=== PATIENT | male | born 1940 | race Caucasian/White ===

== ENCOUNTER → 2016-07-03 | Outpatient (CLI) | payer MEDICARE ==
[2016-07-03 12:13] LABS: CH 31.2; CHCM 33.3; HCT 45.1 % (39.0-53.0); HDW 2.68; HGB 14.9 gm/dL (13.0-17.5); MCH 31.1 pg (25.0-35.0); MCHC 33.1 g/dL (31.0-37.0); MCV 94.1 fL (80.0-100.0); Mean Platelet Volume 7.3; RBC 4.79 m/uL (4.30-5.90); RDW 13.2 % (11.5-15.5); WBC 5.9 k/uL (3.8-10.6)
--- NOTE | 2016-07-03 12:38 | XR ---
EXAMINATION TYPE: XR chest 2V DATE OF EXAM: 07/03/2016 11:43 AM COMPARISON: 03/01/2012 TECHNIQUE: PA and lateral views submitted. HISTORY: Cough FINDINGS: The lungs are clear and there is no pneumothorax, pleural effusion, or focal pneumonia. Hyperinflat ion suggests COPD. There is stable biapical pleural thickening. Coarsened interstitium suggest pulmon antwan fibrosis. Tiny granuloma suspected in the upper lobes. Aorta again is prominent in size. More focal right suprahilar area of asymmetry is noted. IMPRESSION: 1. There is a more focal area of density in the right suprahilar region for which CT of the chest is recommended. Infiltrate versus neoplasm.. 2. COPD and findings suggestive of pulmonary fibrosis. 3. The aorta again is prominent previously noted to represent mild aneurysmal dilation
== END | disposition home or self-care (01) ==
LOC: RADXRMAIN 11:33
PROVIDERS: ATTEND Internal Medicine
DX: J98.4 Other disorders of lung (principal); J44.9 Chronic obstructive pulmonary disease, unspecified; R05 Cough
CPT/HCPCS: 36415; 71020; 83880; 85027

== ENCOUNTER → 2016-07-08 | Outpatient (CLI) | payer MEDICARE ==
[2016-07-08 17:07] LABS: Blood Urea Nitrogen 23 mg/dL (9-20); Non-African American GFR(MDRD) 59 (>60 ml/min/1.73 sqM)
--- NOTE | 2016-07-08 18:04 | CT ---
EXAMINATION TYPE: CT angio chest DATE OF EXAM: 07/08/2016 5:44 PM COMPARISON: 01/30/2015 HISTORY: Cough x 2 weeks. Follow-up on thoracic aneurysm. CT DLP: 420.00 mGycm Automated exposure control for dose reduction was used. CONTRAST: CTA scan of the thorax is performed with IV Contrast, patient injected with 80 mL of Visipaque 320, p ulmonary embolism protocol. . FINDINGS: There is a patchy nodular consolidation at the lung apices and worse on the right side. There is a mi ld reticular infiltrate at the lung bases. There is no pleural effusion. Thoracic aorta is atheromato us. There is aneurysm of the ascending aorta. This measures up to 4.7 cm in diameter. There is no sig n of dissection. There are no hilar masses. There is no mediastinal adenopathy. There is no pleural e ffusion. 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 NO SIGN OF PULM ONARY EMBOLISM. 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 FIBROTIC CHANGES AND INTERSTITIAL INFILTRATE AT THE LUNG BASES APPEARS SLIGHTLY WORSE THAN LAST EXAM.
== END | disposition home or self-care (01) ==
LOC: RADCTMAIN 16:13
PROVIDERS: ATTEND Internal Medicine Interventional Cardiology
DX: I71.2 Thoracic aortic aneurysm, without rupture (principal); J84.10 Pulmonary fibrosis, unspecified; R91.8 Other nonspecific abnormal finding of lung field; R05 Cough; R93.8 Abnormal findings on diagnostic imaging of other specified body structures
CPT/HCPCS: 82565; 84520; 71275; 36415; Q9967

== ENCOUNTER → 2019-01-11 | Outpatient (CLI) | payer MEDICARE ==
--- NOTE | 2019-01-11 11:36 | ECHOS ---
STRESS ECHOCARDIOGRAM DATE OF SERVICE: 01/11/2019 INDICATIONS: Shortness of breath. MEDICATIONS: BASELINE HEART RATE: 58 BASELINE BLOOD PRESSURE: 129/55 MAXIMUM HEART RATE: 131 MAXIMUM BLOOD PRESSURE: 168/77 85% MPHR: 122 100% MPHR: 143 METS: 7 MAXIMUM STAGE REACHED: III TOTAL EXERCISE TIME: 6 minutes CLINICAL INFORMATION: Baseline EKG shows sinus rhythm with nonspecific ST-T wave changes. Patient exercised on Hardeep protocol for a total of 6 minutes achieving 7 METs, 91% of predicted maximal heart rate without chest pain. At peak exercise, there was worsening of the baseline ST- T wave changes noted. Baseline echo shows normal left ventricular size, wall motion and systolic function. Postexercise, there is involving inferoapical wall at peak exercise. CONCLUSIONS: 1. Average exercise tolerance. 2. Inconclusive EKG part of the stress test due to baseline EKG abnormalities. 3. Abnormal stress echo showing exercise-induced wall motion abnormality involving inferoapical wall. MMODL / IJN: [id number] /
== END | disposition home or self-care (01) ==
LOC: RADNMMAIN 09:35
PROVIDERS: ATTEND Internal Medicine
DX: R94.39 Abnormal result of other cardiovascular function study (principal); I25.10 Atherosclerotic heart disease of native coronary artery without angina pectoris; Z88.6 Allergy status to analgesic agent
CPT/HCPCS: 93351

== ENCOUNTER → 2021-08-15 | Outpatient (CLI) | payer MEDICARE ==
--- NOTE | 2021-08-17 20:33 | US ---
EXAMINATION TYPE: US carotid duplex BILAT DATE OF EXAM: 08/15/2021 COMPARISON: NONE CLINICAL HISTORY: I65.23 Carotid Stenosis. EXAM MEASUREMENTS: RIGHT: Peak Systolic Velocity (PSV) cm/sec ----- Right CCA: 105 ----- Right ICA: 115 ----- Right ECA: 130 ICA/CCA ratio: 1.10 RIGHT: End Diastole cm/sec ----- Right CCA: 17.0 ----- Right ICA: 21.1 ----- Right ECA: 0.0 LEFT: Peak Systolic Velocity (PSV) cm/sec ----- Left CCA: 98.4 ----- Left ICA: 96.0 ----- Left ECA: 85.2 ICA/CCA ratio: 0.98 LEFT: End Diastole cm/sec ----- Left CCA: 15.6 ----- Left ICA: 28.2 ----- Left ECA: 14.4 VERTEBRALS (direction of flow): Right Vertebral: Antegrade Left Vertebral: Antegrade Rhythm: Normal mild plaque bilateral bifurcations. no evidence of elevated velocities IMPRESSION: 1. Atheromatous plaquing without significant flow-limiting stenosis by velocity measurement Criteria for Assigning % of Stenosis / Diameter reduction (Estimation based on the indirect measurements of the internal carotid artery velocities (ICA PSV). 1. Normal (no stenosis)=ICA PSV < 125 cm/s: ratio < 2.0: ICA EDV<40 cm/s. 2. Less than 50% stenosis=ICA PSV < 125 cm/s: ratio < 2.0: ICA EDV<40 cm/s. 3. 50 to 69% stenosis=ICA PSV of 125 to 230 cm/s: ration 2.0 ? 4.0: ICA EDV 40-100 cm/s. 4. Greater than 70% stenosis to near occlusion= ICA PSV > 230 cm/s: ratio > 4.0: ICA EDV > 100 cm/s. 5. Near occlusion= ICA PSV velocities may be low or undetectable: variable ratio and ICA EDV. 6. Total occlusion=unable to detect flow.
== END | disposition home or self-care (01) ==
LOC: RADUSWWP 16:01
PROVIDERS: ATTEND Internal Medicine
DX: I65.23 Occlusion and stenosis of bilateral carotid arteries (principal)
CPT/HCPCS: 93880

== ENCOUNTER → 2022-03-03 | Outpatient (CLI) | payer MEDICARE ==
--- NOTE | 2022-03-04 11:18 | XR ---
Left shoulder HISTORY: Pain, remote history of trauma 3 views of the left shoulder correlated to chest CT dated 07/08/2016 Distal acromion is downturned. There may be a distal acromial spur. Left lung apex shows some patchy density, interstitial prominence, apical thickening at the pleural level. Alignment is maintained. Sh oulder may be somewhat high riding. Question calcification at the insertion of the rotator cuff tendo n. IMPRESSION: There may be underlying impingement, difficult to exclude rotator cuff tear, shoulder MRI may be of benefit. There is underlying interstitial lung disease.
== END | disposition home or self-care (01) ==
LOC: RADXRMAIN 15:47
PROVIDERS: ATTEND Internal Medicine
DX: M25.512 Pain in left shoulder (principal)

== ENCOUNTER → 2022-03-27 | Outpatient (CLI) | payer MEDICARE ==
--- NOTE | 2022-03-27 22:33 | MR ---
EXAMINATION TYPE: MR shoulder LT wo con DATE OF EXAM: 03/27/2022 COMPARISON: Outside left shoulder x-ray March 03, 2022 HISTORY: Left shoulder pain, S/P fall 6 wks ago. TECHNIQUE: Multiplanar, multisequence imaging of the left shoulder is performed without contrast. FINDINGS: Rotator Cuff: Full-thickness retracted tear of the supraspinatus tendon to level of the acromioclavic ular joint. Infraspinatus tendon intact. Rotator cuff muscle bulk preserved. Acromioclavicular Joint: Moderate to severe narrowing and moderate superior capsular hypertrophy. Glenohumeral Joint: Small to moderate size joint effusion extending superiorly. Moderate glenoid spur ring. High positioning of the humeral head. Labrum: Blunting of superior labrum consistent with tear. Biceps Tendon: The long head of biceps is dislocated medially, intra-articular portion not well seen. Bone marrow signal: There is a Hill-Sachs type deformity or loss of spherical shape to the humeral he ad particularly along the lateral aspect with subchondral cystic change superiorly. Other: No additional significant abnormality is appreciated. IMPRESSION: 1. Full-thickness retracted tear of the distal supraspinatus tendon. High positioned humeral head sug gesting underlying instability. 2. Labral tear with dislocated onto head of biceps tendon.
== END | disposition home or self-care (01) ==
LOC: RADMRIMAIN 18:42
PROVIDERS: ATTEND Internal Medicine
DX: M75.112 Incomplete rotator cuff tear or rupture of left shoulder, not specified as traumatic (principal)

== ENCOUNTER 2023-06-25 10:17 | Emergency (ER) | payer MEDICARE ==
[2023-06-25 10:42] VITALS: RESP 18; TEMP 96.9
[2023-06-25] MEDS ORDERED: IPRATROPIUM-ALBUTEROL 3 ML NEB INHALATION STA (10:44)
--- NOTE | 2023-06-25 10:45 | ED ---
General Adult HPI - General Chief complaint: Shortness of Breath Stated complaint: SOB Time Seen by Provider: 06/25/23 10:30 Source: patient Mode of arrival: ambulatory Limitations: no limitations - History of Present Illness Initial comments: Patient is a pleasant 82-year-old male presenting to the emergency department with concerns with shortness of breath. Onset of symptoms was a couple weeks ago. Patient has had congestion in his chest and sinuses however now only in the chest. Patient has occasional cough. Patient does have history of pulmo nary fibrosis. No chest pain. No fever. - Related Data Previous Rx's Medication Instructions Recorded Albuterol Inhaler [Ventolin Hfa 2 puff INHALATION Q4HR PRN #1 each 06/25/23 Inhaler] Oseltamivir [Tamiflu] 75 mg PO Q12HR #10 cap 06/25/23 Allergies Allergy/AdvReac Type Severity Reaction Status Date / Time aspirin AdvReac Abdominal Verified 06/25/23 10:29 Pain prednisone AdvReac Confusion Verified 06/25/23 10:29 Review of Systems ROS Statement: Those systems with pertinent positive or pertinent negative responses have been documented in the HPI. ROS Other: All systems not noted in ROS Statement are negative. Constitutional: Denies: fever, chills Eyes: Denies: eye pain ENT: Reports: congestion Respiratory: Reports: as per HPI, cough, dyspnea Cardiovascular: Denies: chest pain Endocrine: Reports: fatigue Gastrointestinal: Denies: abdominal pain Past Medical History Past Medical History: Hyperlipidemia, Hypertension Additional Past Medical History / Comment(s): Pulmonary fibrosis History of Any Multi-Drug Resistant Organisms: None Reported Past Surgical History: Back Surgery, Hernia Repair, Orthopedic Surgery Additional Past Surgical History / Comment(s): left elbow, back, carpal tunnel Past Psychological History: No Psychological Hx Reported Smoking Status: Never smoker Past Alcohol Use History: None Reported Past Drug Use History: None Reported General Exam Limitations: no limitations General appearance: alert, in no apparent distress Head exam: Present: normocephalic Eye exam: Present: normal appearance Neck exam: Present: normal inspection Respiratory exam: Present: normal lung sounds bilaterally. Absent: respiratory distress, wheezes Cardiovascular Exam: Present: regular rate, normal rhythm GI/Abdominal exam: Present: soft. Absent: tenderness Extremities exam: Present: normal inspection. Absent: pedal edema, calf tenderness Neurological exam: Present: alert Psychiatric exam: Present: normal affect, normal mood Skin exam: Present: normal color Course Vital Signs 06/25/23 06/25/23 06/25/23 10:24 11:58 12:10 Temperature 96.9 F L Pulse Rate 64 60 60 Respiratory 18 16 18 Rate Blood Pressure 116/71 O2 Sat by Pulse 99 Oximetry EKG Findings - EKG Results: EKG: interpreted by RUBID (Sinus bradycardia with first-degree AV block, [place] 212.), sinus rhythm, normal axis, normal QRS, normal ST/T EKG shows: bradycardia Medical Decision Making - Medical Decision Making Was pt. sent in by a medical professional or institution (, PA, BALANCE WHEEL SCREW HOLE TAPPER, urgent care, hospital, or half-way...) When possible be specific @ -No Did you speak to anyone other than the patient for history (EMS, parent, family, police, friend...)? What history was obtained from this source @ -Patient is family is present and helps provide history including history of fibrosis Did you review nursing and triage notes (agree or disagree)? Why? @ -I reviewed and agree with nursing and triage notes Were old charts reviewed (outside hosp., previous admission, EMS record, old E KG, old radiological studies, urgent care reports/EKG's, half-way records)? Report findings @ -Previous chest x-ray reviewed. Differential Diagnosis (chest pain, altered mental status, abdominal pain women, abdominal pain men, vaginal bleeding, weakness, fever, dyspnea, syncope, headache, dizziness, GI bleed, back pain, seizure, CVA, palpatations, mental health, musculoskeletal)? @ -Differential Dyspnea: Coronary syndrome, arrhythmia, tamponade, asthma, COPD, pulmonary embolism, pneumonia, pneumothorax, pulmonary effusion, anaphylaxis, diabetic ketoacidosis, flailed chest, pulmonary contusion, diaphragmatic rupture, anemia, neuromuscular, this is not meant to be an all-inclusive list. EKG interpreted by me (3pts min.). @ -As above X-rays interpreted by me (1pt min.). @ -Chest x-ray shows fibrosis. CT interpreted by me (1pt min.). @ -CT scan of the chest without obvious embolism. Aneurysm present. Fibrosis present. Lymph nodes present. U/S interpreted by me (1pt. min.). @ -None done What testing was considered but not performed or refused? (CT, X-rays, U/S, labs)? Why? @ -None What meds were considered but not given or refused? Why? @ -None Did you discuss the management of the patient with other professionals (professionals i.e. , PA, BALANCE WHEEL SCREW HOLE TAPPER, lab, RT, psych nurse, home health care social worker, distribution analyst, teacher, special weapons and tactics officer, medical case worker)? Give summary @ -No Was smoking cessation discussed for >3mins.? @ -No Was critical care preformed (if so, how long)? @ -No Were there social determinants of health that impacted care today? How? (Homelessness, low income, unemployed, alcoholism, drug addiction, transportation, low edu. Level, literacy, decrease access to med. care, snf, rehab)? @ -No Was there de-escalation of care discussed even if they declined (Discuss DNR or withdrawal of care, Hospice)? DNR status @ -No What co-morbidities impacted this encounter? (DM, HTN, Smoking, COPD, CAD, Cancer, CVA, ARF, Chemo, Hep., AIDS, mental health diagnosis, sleep apnea, morbid obesity)? @ -None Was patient admitted / discharged? Hospital course, mention meds given and route, prescriptions, significant lab abnormalities, going to OR and other pertinent info. @ -Patient reevaluated and resting comfortably in bed. Patient and family updated on results and plan. Patient and family are comfortable with discharge home. Patient will be prescribed Tamiflu secondary to history of fibrosis. Patient recommended close follow-up. Specifically updated on CT results and need for follow-up with that as well. Undiagnosed new problem with uncertain prognosis? @ -No Drug Therapy requiring intensive monitoring for toxicity (Heparin, Nitro, Insulin, Cardizem)? @ -No Were any procedures done? @ -No Diagnosis/symptom? @ -Influenza Acute, or Chronic, or Acute on Chronic? @ -Acute Uncomplicated (without systemic symptoms) or Complicated (systemic symptoms)? @ -Default Side effects of treatment? @ -No Exacerbation, Progression, or Severe Exacerbation? @ -No Poses a threat to life or bodily function? How? (Chest pain, [place], [place], pneumonia, PE, COPD, DKA, ARF, appy, cholecystitis, CVA, Diverticulitis, Homicidal, Suicidal, threat to staff... and all critical care pts) @ -No - Lab Data Result diagrams: 06/25/23 10:48 06/25/23 10:48 Lab Results 06/25/23 06/25/23 06/25/23 Range/Units 10:48 10:48 10:48 WBC 6.1 (3.8-10.6) k/uL RBC 4.62 (4.30-5.90) m/uL Hgb 14.0 (13.0-17.5) gm/dL Hct 42.4 (39.0-53.0) % MCV 91.8 (80.0-100.0) fL MCH 30.3 (25.0-35.0) pg MCHC 33.0 (31.0-37.0) g/dL RDW 13.6 (11.5-15.5) % Plt Count 189 (150-450) k/uL MPV 8.3 Neutrophils % 51 % Lymphocytes % 30 % Monocytes % 10 % Eosinophils % 6 % Basophils % 1 % Neutrophils # 3.2 (1.3-7.7) k/uL Lymphocytes # 1.8 (1.0-4.8) k/uL Monocytes # 0.6 (0-1.0) k/uL Eosinophils # 0.4 (0-0.7) k/uL Basophils # 0.1 (0-0.2) k/uL PT 11.1 (10.0-12.5) sec INR 1.0 (<1.2) APTT 24.7 (22.0-30.0) sec D-Dimer 0.94 H (<0.60) mg/L FEU Sodium 138 (137-145) mmol/L Potassium 4.7 (3.5-5.1) mmol/L Chloride 105 (98-107) mmol/L Carbon Dioxide 26 (22-30) mmol/L Anion Gap 7 mmol/L BUN 18 (9-20) mg/dL Creatinine 1.04 (0.66-1.25) mg/dL Est GFR (CKD-EPI)AfAm 78 (>60 ml/min/1.73 sqM) Est GFR (CKD-EPI)NonAf 67 (>60 ml/min/1.73 sqM) Glucose 94 (74-99) mg/dL Plasma Lactic Acid Sixto (0.7-2.0) mmol/L Calcium 9.3 (8.4-10.2) mg/dL Magnesium 2.0 (1.6-2.3) mg/dL Total Bilirubin 0.8 (0.2-1.3) mg/dL AST 39 (17-59) U/L ALT 21 (4-49) U/L Alkaline Phosphatase 70 (38-126) U/L Troponin I (0.000-0.034) ng/mL NT-Pro-B Natriuret Pep 350 pg/mL Total Protein 7.8 (6.3-8.2) g/dL Albumin 3.9 (3.5-5.0) g/dL Influenza Type A (PCR) (Not Detectd) Influenza Type B (PCR) (Not Detectd) RSV (PCR) (Not Detectd) SARS-CoV-2 (PCR) (Not Detectd) 06/25/23 06/25/23 06/25/23 Range/Units 10:48 10:48 10:48 WBC (3.8-10.6) k/uL RBC (4.30-5.90) m/uL Hgb (13.0-17.5) gm/dL Hct (39.0-53.0) % MCV (80.0-100.0) fL MCH (25.0-35.0) pg MCHC (31.0-37.0) g/dL RDW (11.5-15.5) % Plt Count (150-450) k/uL MPV Neutrophils % % Lymphocytes % % Monocytes % % Eosinophils % % Basophils % % Neutrophils # (1.3-7.7) k/uL Lymphocytes # (1.0-4.8) k/uL Monocytes # (0-1.0) k/uL Eosinophils # (0-0.7) k/uL Basophils # (0-0.2) k/uL PT (10.0-12.5) sec INR (<1.2) APTT (22.0-30.0) sec D-Dimer (<0.60) mg/L FEU Sodium (137-145) mmol/L Potassium (3.5-5.1) mmol/L Chloride (98-107) mmol/L Carbon Dioxide (22-30) mmol/L Anion Gap mmol/L BUN (9-20) mg/dL Creatinine (0.66-1.25) mg/dL Est GFR (CKD-EPI)AfAm (>60 ml/min/1.73 sqM) Est GFR (CKD-EPI)NonAf (>60 ml/min/1.73 sqM) Glucose (74-99) mg/dL Plasma Lactic Acid Sixto 1.1 (0.7-2.0) mmol/L Calcium (8.4-10.2) mg/dL Magnesium (1.6-2.3) mg/dL Total Bilirubin (0.2-1.3) mg/dL AST (17-59) U/L ALT (4-49) U/L Alkaline Phosphatase (38-126) U/L Troponin I <0.012 (0.000-0.034) ng/mL NT-Pro-B Natriuret Pep pg/mL Total Protein (6.3-8.2) g/dL Albumin (3.5-5.0) g/dL Influenza Type A (PCR) Detected A (Not Detectd) Influenza Type B (PCR) Not Detected (Not Detectd) RSV (PCR) Not Detected (Not Detectd) SARS-CoV-2 (PCR) Not Detected (Not Detectd) Disposition Clinical Impression: Influenza A Disposition: HOME SELF-CARE Condition: Stable Instructions (If sedation given, give patient instructions): Influenza (ED) Additional Instructions: Please do follow-up with primary care physician in the next 1 or 2 days for recheck. Prescriptions have been sent to pharmacy. Have your doctor review results, specifically CT and follow-up regarding this. Return for difficulty breathing, worsening symptoms or other concerns. Prescriptions: Oseltamivir [Tamiflu] 75 mg PO Q12HR #10 cap Albuterol Inhaler [Ventolin Hfa Inhaler] 2 puff INHALATION Q4HR PRN #1 each PRN Reason: Dyspnea Is patient prescribed a controlled substance at d/c from ED?: No Referrals: Mel Ziegler MD [Primary Care Provider] - 1-2 days Time of Disposition: 13:15
[2023-06-25 11:02] LABS: Basophils # (A) 0.1 k/uL (0-0.2); Basophils % (A) 1 %; Eosinophils # (A) 0.4 k/uL (0-0.7); Eosinophils % (A) 6 %; HCT 42.4 % (39.0-53.0); Lymphocytes # (A) 1.8 k/uL (1.0-4.8); Lymphocytes % (A) 30 %; MCH 30.3 pg (25.0-35.0); MCV 91.8 fL (80.0-100.0); Mean Platelet Volume 8.3; Monocytes # (A) 0.6 k/uL (0-1.0); Monocytes % (A) 10 %; Neutrophils # (A) 3.2 k/uL (1.3-7.7); Neutrophils % (A) 51 %; Platelet Count 189 k/uL (150-450); RBC 4.62 m/uL (4.30-5.90); RDW 13.6 % (11.5-15.5); WBC 6.1 k/uL (3.8-10.6)
[2023-06-25 11:15] LABS: ALT 21 U/L (4-49); AST 39 U/L (17-59); African American GFR (CKD) 78 (>60 ml/min/1.73 sqM); Albumin 3.9 g/dL (3.5-5.0); Alkaline Phosphatase 70 U/L (38-126); Anion Gap 7 mmol/L; Blood Urea Nitrogen 18 mg/dL (9-20); Calcium 9.3 mg/dL (8.4-10.2); Carbon Dioxide 26 mmol/L (22-30); Chloride 105 mmol/L (98-107); Glucose 94 mg/dL (74-99); Non-African American GFR(CKD) 67 (>60 ml/min/1.73 sqM); Potassium 4.7 mmol/L (3.5-5.1); Sodium 138 mmol/L (137-145); Total Bilirubin 0.8 mg/dL (0.2-1.3); Total Protein 7.8 g/dL (6.3-8.2)
[2023-06-25 11:19] LABS: Partial Thromboplastin Time 24.7 sec (22.0-30.0); Prothrombin Time 11.1 sec (10.0-12.5)
[2023-06-25 11:24] LABS: NT-Pro-B-Type Natriuretic Pept 350 pg/mL
--- NOTE | 2023-06-25 11:33 | XR ---
EXAMINATION TYPE: XR chest 2V DATE OF EXAM: 06/25/2023 11:28 AM CLINICAL INDICATION:Male, 82 years old with history of difficulty breathing; [facility] COMPARISON: Chest radiographs from 07/03/2016. TECHNIQUE: XR chest 2V Frontal and lateral views of the chest. FINDINGS: Lungs/Pleura: Prominent interstitial lung markings are seen scattered throughout the lungs with cici ening of the diaphragm and increased lucency of the lung apices. No evidence of focal consolidation, pneumothorax or pleural effusion. Superimposed increased interstitial opacities are seen throughout t he lungs. Pulmonary vascularity: Mild pulmonary vascular congestion. Heart/mediastinum: Cardiomediastinal silhouette is prominent in size. Musculoskeletal: No acute osseous pathology. IMPRESSION: Suspected COPD changes, chronic interstitial changes with superimposed pulmonary edema excluded. Guero elate with serum BNP.
--- NOTE | 2023-06-25 12:58 | CT ---
EXAMINATION TYPE: CT angio chest DATE OF EXAM: 06/25/2023 COMPARISON: 12/14/2022 HISTORY: 82-year-old male Dyspnea, hx pulmonary fibrosis TECHNIQUE: Contiguous axial scanning of the chest after the administration of 100 mL of Isovue 370. Coronal/sagittal MIP reconstructions performed. CT DLP: 306mGycm. Automatic exposure control utilized for a dose reduction. FINDINGS: The heart is borderline enlarged without pericardial effusion. Mild pectus excavatum deformity impres ses upon to the right ventricle. Extensive LAD coronary artery calcifications are present. Aortic root aneurysmal at 4.4 cm. Ascending aorta aneurysmal at 5.0 cm versus 4.8 cm on 12/14/2022. Comparison by short vessel branching anatomy. Ectatic upper descending thoracic aorta 3.7 cm and lower descending thoracic aorta 2.8 cm. Bilateral hilar adenopathy measures up to 1.7 cm on the left and 1.6 cm on the right. Additional bron chial adenopathy measuring up to 1.4 cm. Subcarinal adenopathy measuring up to 1.9 cm. This appears i ncreased from 12/14/2022 but assessment on that exam was limited due to HRCT technique. There is satisfactory opacification of the pulmonary arterial system. No pulmonary embolus is seen. Coarse interstitial changes throughout with lower lung and biapical bronchiectasis, groundglass briceño e especially in the lower lungs, and subpleural microcystic change especially at the costophrenic ang les/lung bases. Overall changes are similar compared to prior exam including a 1.5 cm focal right midlung nodular opa [place] on axial image 58. Visualized upper abdomen shows no gross abnormality. Bones: Mild degenerative disc disease mid to lower thoracic spine. IMPRESSION: 1. No evidence for pulmonary embolus. 2. Extensive chronic interstitial changes with coarse fibrosis throughout, biapical and bilateral low er lung bronchiectasis, subpleural microcystic changes especially at the costophrenic angles, and bib asilar groundglass. Correlate for any known diagnosis. Fibrotic NSIP is in the differential. 3. Bilateral hilar and subcarinal adenopathy appears to have increased currently measuring up to 1.9 cm. This may be reactive/post inflammatory. Three-month follow-up CT to reassess and exclude other et iologies such as systemic atypical infections and lymphoma. 4. Aneurysmal thoracic aorta with the root measuring 4.4 cm and ascending aorta measuring 5.0 cm (corin nestor 4.8 cm previously). 5. Extensive LAD coronary artery calcifications.
[2023-06-25 13:40] VITALS: BP 124/62; PULSE 72
== END 2023-06-25 13:30 | disposition home or self-care (01) ==
LOC: EC 10:17
DX: J10.1 Influenza due to other identified influenza virus with other respiratory manifestations (principal); I44.30 Unspecified atrioventricular block; I10 Essential (primary) hypertension; Z88.6 Allergy status to analgesic agent; Z88.8 Allergy status to other drugs, medicaments and biological substances; Z20.822 Contact with and (suspected) exposure to COVID-19
CPT/HCPCS: 36415; 94640; 93005; 85379; 83880; 80053; 83605; 83735; 84484; 85025; 85610; 85730; 87636; 71046; 71275; 99285; Q9967

== ENCOUNTER → 2023-07-09 | Outpatient (CLI) | payer MEDICARE ==
--- NOTE | 2023-07-09 10:16 | XR ---
EXAMINATION TYPE: XR chest 2V DATE OF EXAM: 07/09/2023 9:43 AM CLINICAL INDICATION:Male, 82 years old with history of J10.1 PA AND LATERAL; H COMPARISON: Chest radiographs from 06/25/2023. TECHNIQUE: XR chest 2V Frontal and lateral views of the chest. FINDINGS: Lungs/Pleura: Prominent interstitial lung markings are seen scattered throughout the lungs. Reticular opacities are seen throughout the lungs. Findings have progressed from 2012. No evidence of focal co nsolidation, pneumothorax or pleural effusion. Pulmonary vascularity: Unremarkable. Heart/mediastinum: Cardiomediastinal silhouette is unremarkable. Musculoskeletal: No acute osseous pathology. Other findings: None IMPRESSION: Interstitial lung disease changes with diffuse reticular opacities. Correlate for superimposed infect ion.
== END | disposition home or self-care (01) ==
LOC: RADXRMAIN 09:24
PROVIDERS: ATTEND Internal Medicine
DX: J10.1 Influenza due to other identified influenza virus with other respiratory manifestations (principal); J84.9 Interstitial pulmonary disease, unspecified
CPT/HCPCS: 71046

== ENCOUNTER → 2023-09-07 | Outpatient (CLI) | payer MEDICARE ==
--- NOTE | 2023-09-07 23:17 | US ---
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 No other symptoms TECHNIQUE: Carotid duplex ultrasound examination. Indirect Doppler criteria was utilized. FINDINGS: EXAM MEASUREMENTS: RIGHT: Peak Systolic Velocity (PSV) cm/sec ----- Right CCA: 98.4 ----- Right ICA: 87.1 ----- Right ECA: 106.4 ICA/CCA ratio: 0.9 RIGHT: End Diastole cm/sec ----- Right CCA: 14.4 ----- Right ICA: 9.7 ----- Right ECA: 0.0 LEFT: Peak Systolic Velocity (PSV) cm/sec ----- Left CCA: 87.1 ----- Left ICA: 100.0 ----- Left ECA: 93.1 ICA/CCA ratio: 1.1 LEFT: End Diastole cm/sec ----- Left CCA: 16.0 ----- Left ICA: 19.2 ----- Left ECA: 0.0 VERTEBRALS (direction of flow): Right Vertebral: Antegrade Left Vertebral: Antegrade Rhythm: Normal [employer] REP NOTES: No significant velocity elevations seen today. IMPRESSION: 1. No significant flow-limiting stenosis bilateral carotid bifurcations based on velocities Criteria for Assigning % of Stenosis / Diameter reduction (Estimation based on the indirect measurements of the internal carotid artery velocities (ICA PSV). 1. Normal (no stenosis)=ICA PSV < 125 cm/s: ratio < 2.0: ICA EDV<40 cm/s. 2. Less than 50% stenosis=ICA PSV < 125 cm/s: ratio < 2.0: ICA EDV<40 cm/s. 3. 50 to 69% stenosis=ICA PSV of 125 to 230 cm/s: ration 2.0 ? 4.0: ICA EDV 40-100 cm/s. 4. Greater than 70% stenosis to near occlusion= ICA PSV > 230 cm/s: ratio > 4.0: ICA EDV > 100 cm/s. 5. Near occlusion= ICA PSV velocities may be low or undetectable: variable ratio and ICA EDV. 6. Total occlusion=unable to detect flow.
== END | disposition home or self-care (01) ==
LOC: RADUSWWP 13:22
PROVIDERS: ATTEND Internal Medicine
DX: I65.23 Occlusion and stenosis of bilateral carotid arteries (principal); R42 Dizziness and giddiness
CPT/HCPCS: 93880

== ENCOUNTER 2023-11-18 08:32 | Emergency (ER) | payer MEDICARE ==
[2023-11-18 08:38] VITALS: TEMP 98
--- NOTE | 2023-11-18 08:55 | ED ---
General Adult HPI - General Chief complaint: Chest Pain Stated complaint: chest pain Time Seen by Provider: 11/18/23 08:39 Source: patient, family Mode of arrival: ambulatory Limitations: no limitations - History of Present Illness Initial comments: Dictation was produced using [employer] dictation software. please excuse any grammatical, word or spelling errors. Chief Complaint: 82-year-old male presents to the emergency department sharp chest pain History of Present Illness: Patient is 82-year-old male with history of pulmonary fibrosis states that he is here today for some sharp chest pain to his right anterior chest. Is worse with deep inspiration and cough. States that he has this pain often however feels like it has been worse over the last 48 hours. Patient Nuys any history of cardiac disease. Patient does not take any blood thinners. States that he has history of GI ulcers. Denies any shortness of breath. Pain is nonradiating. Not associate diaphoresis or nausea. States he is here in the emergency department today to make sure that his chest pain is not cardiac related. The ROS documented in this emergency department record has been reviewed and confirmed by me. Those systems with pertinent positive or negative responses have been documented in the HPI. All other systems are other negative and/or noncontributory. - Related Data Home Medications Medication Instructions Recorded Confirmed Acetaminophen Tab [Tylenol] 325 mg PO Q8H PRN 11/18/23 11/18/23 Clopidogrel [Plavix] 75 mg PO DAILY 11/18/23 11/18/23 Metoprolol Tartrate [Lopressor] 50 mg PO BID 11/18/23 11/18/23 Pyridoxine [Vitamin B-6] 50 mg PO DAILY 11/18/23 11/18/23 Rosuvastatin Calcium [Crestor] 40 mg PO DAILY 11/18/23 11/18/23 Ubidecarenone [Coenzyme Q10] 200 mg PO DAILY 11/18/23 11/18/23 Vit C/E/Zn/Coppr/Lutein/Zeaxan 1 cap PO HS 11/18/23 11/18/23 [Preservision Areds 2 Softgel] Allergies Allergy/AdvReac Type Severity Reaction Status Date / Time aspirin AdvReac Abdominal Verified 11/18/23 10:57 Pain prednisone AdvReac Confusion Verified 11/18/23 10:57 MUSCLE RELAXERS AdvReac Uncoded 11/18/23 10:57 Review of Systems ROS Statement: Those systems with pertinent positive or pertinent negative responses have been documented in the HPI. ROS Other: All systems not noted in ROS Statement are negative. Past Medical History Past Medical History: Hyperlipidemia, Hypertension Additional Past Medical History / Comment(s): Pulmonary fibrosis History of Any Multi-Drug Resistant Organisms: None Reported Past Surgical History: Back Surgery, Hernia Repair, Orthopedic Surgery Additional Past Surgical History / Comment(s): left elbow, back, carpal tunnel Past Psychological History: No Psychological Hx Reported Smoking Status: Never smoker Past Alcohol Use History: None Reported Past Drug Use History: None Reported General Exam - General Exam Comments Initial Comments: PHYSICAL EXAM: General Impression: Alert and oriented x3, not in acute distress HEENT: Normocephalic atraumatic, extra-ocular movements intact, pupils equal and reactive to light bilaterally, mucous membranes moist. Cardiovascular: Heart regular rate and rhythm Chest: Able to complete full sentences, no retractions, no tachypnea Abdomen: abdomen soft, non-tender, non-distended, no organomegaly Musculoskeletal: Pulses present and equal in all extremities, no peripheral edema Motor: no focal deficits noted Neurological: CN II-XII grossly intact, no focal motor or sensory deficits noted Skin: Intact with no visualized rashes Psych: Normal affect and mood Limitations: no limitations Course Vital Signs 11/18/23 11/18/23 08:34 10:28 Temperature 98 F Pulse Rate 75 58 L Respiratory 18 16 Rate Blood Pressure 100/58 100/66 O2 Sat by Pulse 98 Oximetry EKG Findings - EKG Comments: EKG Findings:: My EKG interpretation: Ventricular rate 66, sinus rhythm,. 05/25/2004, cures 94, QTc 395. No [place] prolongation, no QTC prolongation, no ST or T-wave changes noted. Overall, this EKG is unremarkable Medical Decision Making - Medical Decision Making Was pt. sent in by a medical professional or institution (, PA, GAME TECHNICIAN, urgent care, hospital, or assisted...) When possible be specific @ -[No] Did you speak to anyone other than the patient for history (EMS, parent, family, police, friend...)? What history was obtained from this source @ -[No] Did you review nursing and triage notes (agree or disagree)? Why? @ -[I reviewed and agree with nursing and triage notes] Were old charts reviewed (outside hosp., previous admission, EMS record, old EKG, old radiological studies, urgent care reports/EKG's, assisted records)? Report findings @ -[No old charts were reviewed] Differential Diagnosis (chest pain, altered mental status, abdominal pain women, abdominal pain men, vaginal bleeding, musculoskeletal, weakness, fever, dyspnea, syncope, headache, dizziness, GI bleed, back pain, seizure, CVA, palpatations, mental health)? @ -Differential Chest Pain: Stable Angina, Unstable Angina, STEMI, NSTEMI Aortic Dissection, Pneumothorax, Musculoskeletal, Esophageal Spasm GERD, Cholecystitis, Pancreatitis, Zoster, this is not meant to be an all-inclusive list. EKG interpreted by me (3pts min.). @ -See above X-rays interpreted by me (1pt min.). @ -Chest x-ray shows pulmonary fibrosis CT interpreted by me (1pt min.). @ -[None done] U/S interpreted by me (1pt. min.). @ -[None done] What testing was considered but not performed or refused? (CT, X-rays, U/S, labs)? Why? @ -[None] What meds were considered but not given or refused? Why? @ -[None] Was smoking cessation discussed for >3mins.? @ -[No] Were there social determinants of health that impacted care today? How? (Homelessness, low income, unemployed, alcoholism, drug addiction, tra nsportation, low edu. Level, literacy, decrease access to med. care, nursing home, rehab)? @ -[No] Was there de-escalation of care discussed even if they declined (Discuss DNR or withdrawal of care, Hospice)? DNR status @ -[No] What co-morbidities impacted this encounter? (DM, HTN, Smoking, COPD, CAD, Can cer, CVA, ARF, Chemo, Hep., AIDS, mental health diagnosis, sleep apnea, morbid obesity)? @ -[None] Was patient admitted / discharged? Hospital course, mention meds given and route, prescriptions, significant lab abnormalities, going to OR and other pertinent info. @ -82-year-old male presents with pleuritic chest pain. Patient has history of pulmonary fibrosis. Vital signs upon arrival are within acceptable limits. Patient is well-appearing. He is offered pain medications however she is just wants to make sure that it is not cardiac related. Patient has no high risk features of ACS. There is no associated diaphoresis, radiation of symptoms. He denies that the pain is substernal pressure. Patient Nuys any cardiac history. Laboratory evaluation obtained. CBC, coag panel within acceptable limits. D- dimer is age-adjusted normal. Metabolic panel is negative. Troponin is negative. Chest x-ray is nonacute. Patient agreeable for discharge given a Lidoderm patch advised follow-up with primary care doctor. Did you discuss the management of the patient with other professionals (professionals i.e. , PA, GAME TECHNICIAN, lab, RT, psych nurse, social media content manager, access services representative, teacher, control officer manager, comp field case manager)? Give summary @ -[No] Was critical care preformed (if so, how long)? @ -[No] Undiagnosed new problem with uncertain prognosis? @ -[No] Drug Therapy requiring intensive monitoring for toxicity (Heparin, Nitro, Insulin, Cardizem)? @ -[No] Were any procedures done? @ -[No] Diagnosis/symptom? Acute, or Chronic, or Acute on Chronic? Uncomplicated (without systemic symptoms) or Complicated (systemic symptoms)? @ -Pleurisy Side effects of treatment? @ -[No] Exacerbation, Progression, or Severe Exacerbation? @ -[No] Poses a threat to life or bodily function? How? (Chest pain, [place], CA, pneumonia, PE, COPD, DKA, ARF, appy, cholecystitis, CVA, Diverticulitis, Homicidal, Suicidal, threat to staff... and all critical care pts) @ -[No] - Lab Data Result diagrams: 11/18/23 08:52 11/18/23 08:52 Lab Results 11/18/23 11/18/23 11/18/23 Range/Units 08:52 08:52 08:52 WBC 4.9 (3.8-10.6) k/uL RBC 4.58 (4.30-5.90) m/uL Hgb 13.5 (13.0-17.5) gm/dL Hct 43.0 (39.0-53.0) % MCV 93.7 (80.0-100.0) fL MCH 29.4 (25.0-35.0) pg MCHC 31.4 (31.0-37.0) g/dL RDW 13.7 (11.5-15.5) % Plt Count 143 L (150-450) k/uL MPV 8.5 Neutrophils % 56 % Lymphocytes % 24 % Monocytes % 8 % Eosinophils % 9 % Basophils % 1 % Neutrophils # 2.7 (1.3-7.7) k/uL Lymphocytes # 1.2 (1.0-4.8) k/uL Monocytes # 0.4 (0-1.0) k/uL Eosinophils # 0.4 (0-0.7) k/uL Basophils # 0.1 (0-0.2) k/uL PT 12.0 (10.0-12.5) sec INR 1.1 (<1.2) APTT 26.8 (22.0-30.0) sec D-Dimer 0.82 H (<0.60) mg/L FEU Sodium 137 (137-145) mmol/L Potassium 4.5 (3.5-5.1) mmol/L Chloride 104 (98-107) mmol/L Carbon Dioxide 27 (22-30) mmol/L Anion Gap 6 mmol/L BUN 22 H (9-20) mg/dL Creatinine 0.86 (0.66-1.25) mg/dL Est GFR (CKD-EPI)AfAm >90 (>60 ml/min/1.73 sqM) Est GFR (CKD-EPI)NonAf 82 (>60 ml/min/1.73 sqM) Glucose 138 H (74-99) mg/dL Calcium 9.4 (8.4-10.2) mg/dL Magnesium 1.9 (1.6-2.3) mg/dL Total Bilirubin 0.9 (0.2-1.3) mg/dL AST 48 (17-59) U/L ALT 18 (4-49) U/L Alkaline Phosphatase 47 (38-126) U/L Troponin I (0.000-0.034) ng/mL Total Protein 7.4 (6.3-8.2) g/dL Albumin 3.7 (3.5-5.0) g/dL 11/18/23 Range/Units 08:52 WBC (3.8-10.6) k/uL RBC (4.30-5.90) m/uL Hgb (13.0-17.5) gm/dL Hct (39.0-53.0) % MCV (80.0-100.0) fL MCH (25.0-35.0) pg MCHC (31.0-37.0) g/dL RDW (11.5-15.5) % Plt Count (150-450) k/uL MPV Neutrophils % % Lymphocytes % % Monocytes % % Eosinophils % % Basophils % % Neutrophils # (1.3-7.7) k/uL Lymphocytes # (1.0-4.8) k/uL Monocytes # (0-1.0) k/uL Eosinophils # (0-0.7) k/uL Basophils # (0-0.2) k/uL PT (10.0-12.5) sec INR (<1.2) APTT (22.0-30.0) sec D-Dimer (<0.60) mg/L FEU Sodium (137-145) mmol/L Potassium (3.5-5.1) mmol/L Chloride (98-107) mmol/L Carbon Dioxide (22-30) mmol/L Anion Gap mmol/L BUN (9-20) mg/dL Creatinine (0.66-1.25) mg/dL Est GFR (CKD-EPI)AfAm (>60 ml/min/1.73 sqM) Est GFR (CKD-EPI)NonAf (>60 ml/min/1.73 sqM) Glucose (74-99) mg/dL Calcium (8.4-10.2) mg/dL Magnesium (1.6-2.3) mg/dL Total Bilirubin (0.2-1.3) mg/dL AST (17-59) U/L ALT (4-49) U/L Alkaline Phosphatase (38-126) U/L Troponin I <0.012 (0.000-0.034) ng/mL Total Protein (6.3-8.2) g/dL Albumin (3.5-5.0) g/dL Disposition Clinical Impression: Pleurisy Disposition: HOME SELF-CARE Condition: Good Instructions (If sedation given, give patient instructions): Pleurisy (DC) Is patient prescribed a controlled substance at d/c from ED?: No Referrals: Mel Ziegler MD [Primary Care Provider] - 1-2 days Time of Disposition: 11:00
[2023-11-18 09:31] LABS: Basophils # (A) 0.1 k/uL (0-0.2); Basophils % (A) 1 %; Eosinophils # (A) 0.4 k/uL (0-0.7); Eosinophils % (A) 9 %; HGB 13.5 gm/dL (13.0-17.5); Lymphocytes # (A) 1.2 k/uL (1.0-4.8); Lymphocytes % (A) 24 %; MCH 29.4 pg (25.0-35.0); MCHC 31.4 g/dL (31.0-37.0); MCV 93.7 fL (80.0-100.0); Mean Platelet Volume 8.5; Monocytes # (A) 0.4 k/uL (0-1.0); Monocytes % (A) 8 %; Neutrophils # (A) 2.7 k/uL (1.3-7.7); Neutrophils % (A) 56 %; Platelet Count 143 k/uL (150-450); RBC 4.58 m/uL (4.30-5.90); RDW 13.7 % (11.5-15.5); WBC 4.9 k/uL (3.8-10.6)
--- NOTE | 2023-11-18 09:41 | XR ---
EXAMINATION TYPE: XR chest 2V DATE OF EXAM: 11/18/2023 COMPARISON: 07/09/2023 HISTORY: Shortness of breath TECHNIQUE: Frontal and lateral views of the chest are obtained. FINDINGS: Scattered senescent parenchymal changes noted. Hyperinflation compatible with COPD. Reticular nodular opacities are seen bilaterally likely related to chronic interstitial lung disease. Superimposed infiltrate left lower lobe be difficult to exclude. Correlate clinically. Heart size is stable. Mediastinal structures are stable and grossly unremarkable. No evidence for hilar prominence. Degenerative changes dorsal spine. IMPRESSION: 1. Reticular nodular opacities are seen bilaterally likely related to chronic interstitial lung disea se. Superimposed infiltrate left lower lobe be difficult to exclude. Correlate clinically.
[2023-11-18 10:01] LABS: ALT 18 U/L (4-49); AST 48 U/L (17-59); African American GFR (CKD) >90 (>60 ml/min/1.73 sqM); Albumin 3.7 g/dL (3.5-5.0); Alkaline Phosphatase 47 U/L (38-126); Anion Gap 6 mmol/L; Blood Urea Nitrogen 22 mg/dL (9-20); Calcium 9.4 mg/dL (8.4-10.2); Carbon Dioxide 27 mmol/L (22-30); Chloride 104 mmol/L (98-107); Glucose 138 mg/dL (74-99); Magnesium 1.9 mg/dL (1.6-2.3); Non-African American GFR(CKD) 82 (>60 ml/min/1.73 sqM); Sodium 137 mmol/L (137-145); Total Bilirubin 0.9 mg/dL (0.2-1.3); Total Protein 7.4 g/dL (6.3-8.2)
[2023-11-18 10:03] LABS: Potassium 4.5 mmol/L (3.5-5.1)
[2023-11-18 10:19] LABS: INR 1.1 (<1.2); Partial Thromboplastin Time 26.8 sec (22.0-30.0)
[2023-11-18 10:28] VITALS: RESP 16
[2023-11-18] MEDS: LIDOCAINE 4% PATCH TOPICAL ONE (11:12)
[2023-11-18 11:16] VITALS: BP 110/73; PULSE 64
== END 2023-11-18 11:21 | disposition home or self-care (01) ==
LOC: EC 08:32
DX: R09.1 Pleurisy (principal); Z88.6 Allergy status to analgesic agent; Z88.8 Allergy status to other drugs, medicaments and biological substances
CPT/HCPCS: 36415; 71046; 80053; 83735; 84484; 85025; 85379; 85610; 85730; 93005; 99285

== ENCOUNTER → 2023-12-22 | Outpatient (CLI) | payer MEDICARE ==
[2023-12-22 12:08] LABS: African American GFR (CKD) >90 (>60 ml/min/1.73 sqM); Blood Urea Nitrogen 24 mg/dL (9-20); Non-African American GFR(CKD) 79 (>60 ml/min/1.73 sqM)
--- NOTE | 2023-12-22 15:43 | CT ---
EXAMINATION TYPE: CT angio chest, without and with contrast DATE OF EXAM: 12/22/2023 COMPARISON: 06/25/2023 HISTORY: 83-year-old male R07.9, CHEST PAIN HX OF AORTIC ANEURYSM. TECHNIQUE: Contiguous axial scanning of the chest before and after the administration of 100ml mL of Isovue 370. Coronal/sagittal reconstructions performed. 3-D reconstructions generated on a dedicated independent workstation. CT DLP: 460mGycm. Automatic exposure control utilized for a dose reduction. FINDINGS: The heart is borderline enlarged without pericardial effusion. LAD and RCA coronary artery calcificat ions are present. Mild aortic valvular calcifications. 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 In the chart. Branching anatomy. Upper descending aorta is ectatic at 3.6 cm, unchanged. Lower descending thoracic aorta ectatic at 2.9 cm, unchanged. Scattered mild to moderate atherosclerotic calcifications within the descending thoracic aorta. No evidence for acute intracranial hematoma or aortic dissection. Numerous scattered nonenlarged mediastinal lymph nodes are unchanged. Subcarinal lymph node measuring 1.7 cm, stable to slightly improved. Borderline to mildly enlarged hilar nodes similar measuring up to 1.9 cm. Combination of emphysematous changes well as coarse reticular nodular changes throughout the lungs. C hanges are more confluent at the apices. Subpleural nodule anterior right mid lung measuring 1 cm is unchanged, axial image 72. An anterior right upper lobe nodule measuring 8 mm previously measured 6 mm and should be reassessed at follow-up. There appears to be honeycombing at the lower lungs along with bronchiectasis. Moderate atherosclerotic calcifications visualized abdominal aorta. Right-sided renal cortical cysts measuring up to 1.2 cm. Moderate stool burden. Bones: Scattered mild degenerative disc disease mid and lower thoracic spine. IMPRESSION: 1. Similar aneurysm aortic root at 4.4 cm and ascending aorta at 5.1 cm. 2. Extensive reticulonodular interstitial changes throughout the lungs with hilar adenopathy, underly ing emphysema, and underlying basilar honeycombing as well. Combination of etiologies including COPD, possible UIP lung injury pattern, and other interstitial fibrosis such as pneumoconiosis, sarcoidosi s or chronic hypersensitivity pneumonitis are considerations. Pulmonary medicine referral if no estab lished diagnosis. 3. An anterior right upper lobe pulmonary nodule measures larger at 8 mm versus 6 mm, previously. Braham ssess at ongoing follow-up.
--- NOTE | 2023-12-22 19:19 | CA ---
Transthoracic Echo Report Name: Jai Zarco Age: 83 Gender: M : 1940 Exam Date: 12/22/2023 12:45 Exam Location: [facility] Ht (in): 72 Wt (lb): 145 Ordering Physician: Mel Ziegler MD Attending/Referring Phys: Mel Ziegler MD Portal Developer Nita Novoa, RDCS Procedure CPT: Indications: R07.9 CHEST PAIN, UNSPECIFIED Cardiac Hx: Technical Quality: Good Contrast 1: Total Dose (mL): Contrast 2: Total Dose (mL): MEASUREMENTS (Male / Female) Normal Values 2D ECHO LV Diastolic Diameter PLAX 5.1 cm 4.2 - 5.9 / 3.9 - 5.3 cm LV Systolic Diameter PLAX 3.6 cm IVS Diastolic Thickness 1.0 cm 0.6 - 1.0 / 0.6 - 0.9 cm LVPW Diastolic Thickness 1.0 cm 0.6 - 1.0 / 0.6 - 0.9 cm LV Relative Wall Thickness 0.4 RV Internal Dim ED PLAX 2.1 cm LVOT Diameter 2.4 cm LA Systolic Diameter LX 3.0 cm 3.0 - 4.0 / 2.7 - 3.8 cm LV Diastolic Volume MOD BP 68.5 cm??? 67 - 155 / 56 - 104 cm??? LV Systolic Volume MOD BP 37.5 cm??? 22 - 58 / 19 - 49 cm??? LV Ejection Fraction MOD BP 45.3 % >= 55 % LV Cardiac Index MOD BP 1433.6 cm???/min???m??? LV Diastolic Volume MOD 4C 72.3 cm??? LV Systolic Volume MOD 4C 32.0 cm??? LV Ejection Fraction MOD 4C 55.8 % LV Cardiac Index MOD 4C 1866.0 cm???/min???m??? LV Diastolic Length 4C 7.1 cm LV Systolic Length 4C 6.1 cm LV Diastolic Volume MOD 2C 65.2 cm??? LV Systolic Volume MOD 2C 40.6 cm??? LV Ejection Fraction MOD 2C 37.7 % LV Cardiac Index MOD 2C 1135.7 cm???/min???m??? LV Diastolic Length 2C 7.1 cm LV Systolic Length 2C 6.7 cm LA Volume 43.3 cm??? 18 - 58 / 22 - 52 cm??? LA Volume Index 23.8 cm???/m??? 16 - 28 cm???/m??? Ascending Aorta Diameter 4.5 cm M-MODE Aortic Root Diameter MM 3.7 cm LA Systolic Diameter MM 3.4 cm LA Ao Ratio MM 0.9 AV Cusp Separation MM 1.0 cm DOPPLER AV Peak Velocity 167.4 cm/s AV Peak Gradient 11.2 mmHg AV Mean Velocity 111.6 cm/s AV Mean Gradient 5.8 mmHg AV Velocity Time Integral 33.7 cm AI Peak Velocity 399.5 cm/s AI Peak Gradient 63.9 mmHg AI Pressure Half Time 679.0 ms LVOT Peak Velocity 69.4 cm/s LVOT Peak Gradient 1.9 mmHg LVOT Velocity Time Integral 17.0 cm LVOT Stroke Volume 78.0 cm??? LVOT Stroke Volume Index 42.0 ml/m??? LVOT Cardiac Index 3605.3 cm???/min???m??? AV Area Cont Eq vti 2.3 cm??? AV Area Cont Eq pk 1.9 cm??? MV Area PHT 1.9 cm??? Mitral E Point Velocity 40.8 cm/s Mitral A Point Velocity 47.1 cm/s Mitral E to A Ratio 0.9 MV Deceleration Time 394.0 ms TR Peak Velocity 200.7 cm/s TR Peak Gradient 16.1 mmHg FINDINGS Left Ventricle Left ventricular ejection fraction is estimated at 50-55 %. Mildly decreased left ventricular ejection fraction. No obvious regional wall motion abnormalities. Left ventricular cavity size normal. Right Ventricle Mild right ventricular dilatation. Right ventricular systolic pressure within normal limits. Right Atrium Mild right atrial dilatation. Left Atrium Mild left atrial dilatation. Mitral Valve Structurally normal mitral valve. Mitral valve thickened. Mild mitral regurgitation. Aortic Valve Trileaflet aortic valve. Diffuse thickening (sclerosis) of the aortic valve cusps without reduced excursion. Focal thickening of the aortic valve cusps. [id number] aortic regurgitation. Tricuspid Valve Structurally normal tricuspid valve. Mild tricuspid regurgitation. Pulmonic Valve Structurally normal pulmonic valve. Trace pulmonic regurgitation. No pulmonic stenosis. Pericardium No pericardial or pleural effusion. Aorta Moderately dilated proximal ascending aorta (tube) 4.5cm. CONCLUSIONS Diagnosis: Chest pain Preserved LV systolic function Prominent posterior pericardial stripe posterior basal and posterior behind left atrium and basilar lateral wall Previewed by: Dr. Omid Valadez MD (Electronically Signed) Final Date: 22 December 2023 19:18
== END | disposition home or self-care (01) ==
LOC: RADCTMAIN 11:17
PROVIDERS: ATTEND Internal Medicine
DX: R07.89 Other chest pain (principal); J43.9 Emphysema, unspecified
CPT/HCPCS: 93306; 82565; 84520; 71275; 36415; Q9967

== ENCOUNTER → 2024-02-24 | Outpatient (CLI) | payer MEDICARE ==
--- NOTE | 2024-02-24 13:48 | FL ---
Exam Date: 02/24/2024 11:59 AM. Modified barium swallow for dysphagia. Consistencies administered: Various consistency of barium. Fluoro time: 53 seconds No images were sent to PACS. Please see speech pathology report. DAP: Reported mGym2 Gycm2 Pt given 1oz EZPaque, 1oz Varibar pudding 53sec fluoro time [facility], , 02/24/2024 1:46 PM
== END | disposition home or self-care (01) ==
LOC: RADFLMAIN 11:30
PROVIDERS: ATTEND General Practice
DX: K27.9 Peptic ulcer, site unspecified, unspecified as acute or chronic, without hemorrhage or perforation (principal)
CPT/HCPCS: 74230